=== PATIENT | female | born 1985 | race Caucasian/White ===

== ENCOUNTER 2017-01-18 20:50 | Emergency (ER) | payer MEDICAID ==
[~2017-01-18] VITALS: Ht 160 cm; Wt 68.0 kg
[~2017-01-18 20:50] MED LIST: PRENAT PO
[2017-01-18 21:00] VITALS: Ht 160 cm; Wt 68.0 kg
--- NOTE | 2017-01-18 22:19 | ERA ---
ER Documentation Chief Complaint Date/Time DATE: 01/18/17 TIME: 22:16 Chief Complaint cough x 1 week with back pain, TB test+, x ray chest -clear in the clinic HPI This is a 29-year-old female presents with a chief complaint of cough. Patient has a cough 1 week that is worse in the evening and nighttime. Patient has a positive history of a positive PPD 2 months ago with a negative chest x-ray 1 month ago. Patient also complains of night sweats and mild unintentional weight loss. 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 Patient denies any sick contacts. Patient denies hemoptysis, dysphasia, edema/ angioedema, excessive weight loss, difficulty breathings, asthma, high fever, meningismus, pharyngitis, change in voice, drooling, chest pain, or rigors. Patient has no other complaints at this time. ROS All systems reviewed and are negative except as per history of present illness. Medications Home Meds Reported Medications Multivit/Min/Fol Ac/Iron/Pren* ( S*) 1 Tab Tab, 1 TAB PO AM, TAB 11/14/14 Allergies Allergies: Coded Allergies: No Known Allergy (Unverified , 10/13/14) PMhx/Soc History of Surgery: Yes (tubal ligation) Anesthesia Reaction: No Hx Neurological Disorder: No Hx Respiratory Disorders: No Hx Cardiac Disorders: No Hx Psychiatric Problems: No Hx Miscellaneous Medical Probl: No Hx Alcohol Use: No Hx Substance Use: No Hx Tobacco Use: No Smoking Status: Never smoker Physical Exam Vitals Vital Signs Date Time Temp Pulse Resp B/P Pulse Ox O2 Delivery O2 Flow Rate FiO2 01/18/17 21:00 98.4 99 20 118/61 98 Physical Exam Const: [] Head: Atraumatic Eyes: Normal Conjunctiva ENT: Normal External Ears, Nose and Mouth. Neck: Full range of motion..~ No meningismus. Resp: Clear to auscultation bilaterally Cardio: Regular rate and rhythm, no murmurs Abd: Soft, non tender, non distended. Normal bowel sounds Skin: No petechiae or rashes Back: No midline or flank tenderness Ext: No cyanosis, or edema Neur: Awake and alert Psych: Normal Mood and Affect Result Diagram: 01/18/17224901/18/172249 Results 24 hrs Laboratory Tests Test 01/18/17 22:50 White Blood Count 8.810^3/ul Red Blood Count 3.9410^6/ul Hemoglobin 11.9g/dl Hematocrit 36.2% Mean Corpuscular Volume 91.9fl Mean Corpuscular Hemoglobin 30.2pg Mean Corpuscular Hemoglobin Concent 32.9g/dl Red Cell Distribution Width 12.4% Platelet Count 58142^3/UL Mean Platelet Volume 9.7fl Neutrophils % 55.8% Lymphocytes % 34.6% Monocytes % 5.8% Eosinophils % 3.1% Basophils % 0.5% Nucleated Red Blood Cells % 0.0/100WBC Neutrophils # 4.910^3/ul Lymphocytes # 3.010^3/ul Monocytes # 0.510^3/ul Eosinophils # 0.310^3/ul Basophils # 0.010^3/ul Nucleated Red Blood Cells # 0.010^3/ul Sodium Level 137mmol/L Potassium Level 3.5mmol/L Chloride Level 103mmol/L Carbon Dioxide Level 28mmol/L Anion Gap 10 Blood Urea Nitrogen 20mg/dl Creatinine 0.60mg/dl Glucose Level 86mg/dl Calcium Level 9.5mg/dl Procedures/MDM Patient is being worked up and evaluated for cough. Patient had a positive PPD 2 months ago. Spoke to my attending and he suggested since there is a negative chest x-ray 1 month ago to go ahead and get a CT of the chest. Tuberculosis precautions are in place. Patient CT showed no evidence of tuberculosis. Findings included the following: Impression - Nonspecific multiple bilateral sub centimeter lung nodules the largest 7 x 3 mm in right lower lobe. These are thought to most likely be inflammatory in this 31 year old patient. Please see above. Most likely diagnosis at this time is acute bronchitis of viral etiology. We will go ahead and give the patient symptomatic treatment with 3 days of Tessalon Perls. We will be discharging with discharge instructions with return precautions. Vital signs are stable at this time and patient's current condition is appropriate for discharge. Departure Diagnosis: Primary Impression: Cough Additional Impression: Acute bronchitis Qualified Code: J20.9 - Acute bronchitis, unspecified organism Condition: Stable Additional Instructions: Follow up with your PCP within the next 1-3 days for a more thorough evaluation and a possible referral to a specialist. Return the the emergency department immediately if symptoms worsen or change. If you have any questions regarding medications, ask your pharmacist or us before you leave. If any adverse reactions occur while taking your medications, discontinue the treatment and return to the emergency department immediately. Take your medications as directed, and complete the entire course of treatment. MICHELLE BANKS PA-C January 18, 2017 22:19
[2017-01-18 23:06] LABS: ADD SCAN DIFF NO; BASOPHILS % 0.5 % (0.0-2.0); EOSINOPHILS # 0.3 10^3/ul (0.0-0.5); EOSINOPHILS % 3.1 % (0.0-7.0); HEMATOCRIT 36.2 % (37.0-47.0); HEMOGLOBIN 11.9 g/dl (12.0-16.0); LYMPHOCYTES % 34.6 % (15.0-51.0); MEAN CORPUSCULAR HEMOGLOBIN 30.2 pg (29.0-33.0); MEAN CORPUSCULAR HGB CONC 32.9 g/dl (32.0-37.0); MEAN CORPUSCULAR VOLUME 91.9 fl (82.0-101.0); MEAN PLATELET VOLUME 9.7 fl (7.4-10.4); MONOCYTE # 0.5 10^3/ul (0.3-0.9); MONOCYTES % 5.8 % (0.0-11.0); NEUTROPHIL # 4.9 10^3/ul (1.6-7.5); NEUTROPHILS % 55.8 % (39.0-77.0); PLATELET COUNT 250 10^3/UL (140-415); RED BLOOD COUNT 3.94 10^6/ul (4.20-5.40); RED CELL DISTRIBUTION WIDTH 12.4 % (11.5-14.5); WHITE BLOOD COUNT 8.8 10^3/ul (4.8-10.8)
[2017-01-18 23:26] LABS: CALCIUM 9.5 mg/dl (8.4-10.2); CREATININE 0.6 mg/dl (0.44-1.00); POTASSIUM 3.5 mmol/L (3.5-5.1)
--- NOTE | 2017-01-19 01:53 | RADRPT ---
PROCEDURE: CT Chest without contrast. CLINICAL INDICATION: Cough TECHNIQUE: CT scan of the chest without contrast was performed on a multidetector high-resolution CT scanner. Coronal and sagittal reformatted images were obtained from the axial source images. The total exam CTDI equals 10.98 mGy and the total exam DLP equals 396.95 mGy-cm. One or more the following dose reduction techniques were utilized: Automated exposure control, adjus tment of the mA/ or kV according to patient's size, or use of iterative reconstruction technique. COMPARISON: None available FINDINGS: Minimal dependent atelectasis in posterior lungs. Scattered linear atelectasis/fibrosis. No pneumoth orax or pleural effusion is seen. Multiple bilateral sub centimeter lung nodules are seen the larges t 7 x 3 mm in the right lower lobe. There is no focal pulmonary consolidation. The central tracheo bronchial tree is clear. Small calcified granuloma in the left lower lung lobe. The mediastinum is unremarkable without evidence for mass or lymphadenopathy. There is appearance o f a small amount of residual thymic tissue in the anterior mediastinum. The vascular structures of the mediastinum are normal in course and caliber. The heart size is normal without evidence for p ericardial thickening or effusion. The axillary regions, subpectoral regions, and supraclavicular regions are all unremarkable. The chun rrounding chest wall is unremarkable. Imaging obtained through the upper abdomen reveals no acute a bnormality. Likely small bone island in left humeral head. IMPRESSION: Nonspecific multiple bilateral sub centimeter lung nodules the largest 7 x 3 mm in right lower lobe. These are thought to most likely be inflammatory in this 31 year old patient. Please see above. RPTAT: HJES .Migue lA Pratt MD, MD Date Time Electronically viewed and signed by .Miguel A Pratt MD, on 01/19/2017 01:53 .S/
[2017-01-19] MEDS ORDERED: BENZ100C70 PO (02:09)
[2017-01-19 02:26] VITALS: BP 94/60; PULSE 81; RESP 16; TEMP 97.8
== END 2017-01-19 02:28 | disposition home or self-care (01) ==
LOC: FTE 20:50
DX: R05 Cough (principal); J20.9 Acute bronchitis, unspecified
CPT/HCPCS: 71250; 80048; 85025

== ENCOUNTER 2017-09-12 20:37 | Emergency (ER) | END 2017-09-13 03:51 | disposition left against medical advice (07) ==